=== PATIENT | male | born 1930 | race Caucasian/White ===

== ENCOUNTER 2017-01-01 08:11 | Observation (INO) | payer OTHER ==
--- NOTE | 2017-01-01 08:07 | EDPHY ---
H & P HPI/ROS: CHIEF COMPLAINT: Near syncope HISTORY OF PRESENT ILLNESS: This patient is a healthy 86 year old male arriving via EMS following a near syncopal episode earlier today while working out at the [facility]. He had done about 30 minutes on the stationary bike and was making his way around the weight circuit, when he began to feel lightheaded as if he were going to faint. He sat down to wait for the feeling to resolve, but it did not go away and staff called EMS. Per EMS report, he was slightly hypotensive initially at 98/38, but his blood pressure increased in transport and vitals remained stable with a heart rate in 50s, BGL 150. He is athletic and generally bradycardic per his report. He has history of syncopal episodes since childhood associated with heat and dehydration, the most recent being five years ago at the [facility] event. This morning, he has not eaten and states he has likely not had enough water to drink. His symptoms have now completely resolved, and he states he feels well enough to go home. He denies chest pain, shortness of breath, and headache. He denies recent illness, cough, cold, vomiting, diarrhea, bood in his stool, or other associated symptoms. He takes a statin and a daily aspirin. He has history of BPH and take Flomax ( he has been taking this for several months). REVIEW OF SYSTEMS: A ten point review of systems was performed and is negative with the exception of the items mentioned in the HPI. Past medical history: BPH Past surgical history: Noncontributory. Social history: . PCP Dr. Bey---Evangelista. Lives at home with his . Former smoker, quit 1975. Drinks in moderation. No illicit drug use. General Appearance: Alert. Vital signs reviewed. HR 50s. Eyes: Pupils equal and round, no conjunctival injection, no discharge. Anicteric. ENT, Mouth: Mucous membranes are moist, no oropharyngeal erythema or edema. Neck: No lymphadenopathy, supple. Respiratory: Lungs are clear to auscultation; no wheezes, rales, or rhonchi. Cardiovascular: Bradycardic. Regular rhythm; no murmur, rub, or gallop. Gastrointestinal: Abdomen is soft and nontender, no masses or organomegaly, bowel sounds normal. Skin: Warm and dry, no rashes on exposed skin, normal color. Back: Nontender to palpation over the thoracolumbar spine. No CVAT. Extremities: No lower extremity edema, no calf tenderness or swelling. Neurological: Alert and oriented. Moving all four extremities easily and equally. Cranial nerves II through XII are examined and are intact (visual acuity not tested). Strength is 5 over 5 bilaterally with testing of all major motor groups. Sensation is intact to light touch over all 4 extremities. Deep tendon reflexes are 2+ in the biceps and knees bilaterally. Psychiatric: Normal affect. Constitutional: Initial Vital Signs Temperature (C) 36.8 C 01/01/17 08:30 Heart Rate 54 L 01/01/17 08:30 Respiratory Rate 16 01/01/17 08:30 Blood Pressure 147/63 H 01/01/17 08:30 O2 Sat (%) 99 01/01/17 08:30 O2 Delivery Mode Room Air Allergies/Adverse Reactions: No Known Allergies Allergy (Unverified 01/01/17 12:23) Home Medications: Medication Instructions Recorded Aspirin [Aspirin 81mg (*)] 81 mg PO HS 01/01/17 Cholecalciferol Vit D3 [Vitamin D3 1,000 units PO HS 01/01/17 (*)] Simvastatin [Zocor] 40 mg PO HS 01/01/17 Medical Decision Making - Diagnostics EKG Interpretation: EKG interpreted by me in [facility]. Sinus at 52. ED Course/Re-evaluation: 9:21 Reassessed patient. Offered admission for continued observation in setting of presyncope and bradycardia. Orthostatic vital signs show supine BP of 136/60 with standing BP of 112/49. HR remains in 50s throughout. I suspect that he is always bradycardic, as he states. He is active and exercises regularly. His presyncope does not appear related to myocardial ischemia (first troponin negative). I have low suspicion for PE (no risk factors, Wells score zero). No evidence of recent or concurrent infection. Electrolytes WNL. Dehydration a strong possibility, as is his medication, Flomax. Also cardiac arrhythmia/sick sinus. I spoke with Evangelista, admission at [facility] agreed upon. 11:15 Spoke with hospitalist service. - Data Points Laboratory Results: Laboratory Results 01/01/17 08:13 01/01/17 08:13 Medications Given: Discontinued Medications Aspirin (Aspirin) 81 mg PO [facility] Stop: 06/30/17 20:59 Last Admin: 01/01/17 19:54 Dose: 81 mg Atorvastatin Calcium (Lipitor) 20 mg PO HS [facility] Stop: 06/30/17 20:59 Last Admin: 01/01/17 19:54 Dose: 20 mg Cholecalciferol (Vitamin D) 1,000 units PO HS [facility] Stop: 06/30/17 20:59 Last Admin: 01/01/17 19:53 Dose: 1,000 units Enoxaparin Sodium (Lovenox) 40 mg SC DAILY [facility] Stop: 07/01/17 08:59 Last Admin: 01/02/17 08:53 Dose: 40 mg Departure - Departure Disposition: [facility] Inpatient Acute Clinical Impression: Near syncope Condition: Good Report Scribed for: Adilene Mohr Report Scribed by: Rosario Cook Date of Report: 01/01/17 Time of Report: 09:22 Physician Review and Approval Statement: 01/02/17 12:12 Portions of this note were transcribed by the medical administrative. I, Dr. Adilene Mohr, personally performed the history, physical exam, and medical decision- making; and confirmed the accuracy of the information in the transcribed note.
--- NOTE | 2017-01-01 08:25 | CPEKG ---
Heart Rate: 52 RR Interval: 1154 P-R Interval: 212 QRSD Interval: 96 QT Interval: 428 QTC Interval: 398 P Beatrice: 29 QRS Beatrice: 70 T Wave Beatrice: 83 EKG Severity - ABNORMAL ECG - EKG Impression: SINUS RHYTHM EKG Impression: LATERAL INFARCT, OLD Electronically Signed By: Adilene Mohr 01-Jan-2017 08:30:43
[2017-01-01 08:37] LABS: % IMMATURE GRANULYOCYTES 0.3 % (0.0-1.1); ABSOLUTE IMMATURE GRANULOCYTES 0.02 10^3/uL (0.00-0.10); ADD DIFF? NO; ADD MORPH? NO; ADD SCAN? NO; ATYPICAL LYMPHOCYTE FLAG 10 (0-99); FRAGMENT RBC FLAG 20 (0-99); HEMATOCRIT 41.4 % (40.0-51.0); LEFT SHIFT FLG 0 (0-99); LIPEMIA HEMOLYSIS FLAG 90 (0-99); MEAN CELL HEMOGLOBIN 31.5 pg (27.9-34.1); MEAN CELL HEMOGLOBIN CONCENTR. 33.8 g/dL (32.4-36.7); MEAN CELL VOLUME 93.2 fL (81.5-99.8); MEAN PLATELET VOLUME 9.9 fL (8.7-11.7); PLATELET CLUMPS FLAG 0 (0-99); PLATELET COUNT 164 10^3/uL (150-400); RED BLOOD CELL COUNT 4.44 10^6/uL (4.40-6.38); RED CELL DISTRIBUTION WIDTH 12.1 % (11.5-15.2)
[2017-01-01 08:40] LABS: ANION GAP 14 mEq/L (8-16); CALCIUM 9.6 mg/dL (8.5-10.4); CARBON DIOXIDE 22 mEq/l (22-31); CHLORIDE 103 mEq/L (97-110); CREATININE 1.3 mg/dL (0.7-1.3); GLOMERULAR FILTRATION RATE 52; GLUCOSE 125 mg/dL (70-100); POTASSIUM 4.6 mEq/L (3.5-5.2); SODIUM 139 mEq/L (134-144)
[2017-01-01 08:52] LABS: TROPONIN I < 0.012 ng/mL (0-0.034)
[2017-01-01] MEDS ORDERED: ONDANSETRON 4 MG/2 ML VIAL IVP PRN (12:30)
[2017-01-01] MEDS ORDERED: ONDANSETRON DISINTEGRATING 4 MG TAB PO PRN (12:30)
[2017-01-01] MEDS ORDERED: ACETAMINOPHEN 325 MG TAB PO PRN (12:30)
--- NOTE | 2017-01-01 14:06 | GHP ---
[f rep st] HISTORY AND PHYSICAL DATE OF ADMISSION: 01/01/2017 CHIEF COMPLAINT: Presyncope. PRIMARY CARE PHYSICIAN: Dr. Bey at [place] HISTORY OF PRESENT ILLNESS: A pleasant 86-year-old male with a history of BPH, was brought in by rosemarie engel for near-syncopal episode at the gym today. He went to [facility] before 7 and was doing his norm al routine of biking and circuit training. He biked 30 minutes and then proceeded to circuit traini . He completed a series of leg presses and upon standing, felt dizzy. He then went to the [employer] and put his legs up, thinking that would help his symptoms, but this did not improve. Thus he laid flat on a bench and one of his friends called for help and was thus brought to the emergency room. He denies nausea, chest pain. He has normal shortness of breath with exercise. No PND or lower ext remity edema. He exercises 3 times a week without issue. He has had a history of syncopal episodes since childhood associated with heat and dehydration. Most recent episode was [address] [facility]. He had not eaten breakfast this morning before his work out, which is not unusual for him. Last steven l was 5 p.m. last night. He was recently started on Flomax 2 months ago but he has not been taking it for the past 2 weeks. He did take a dose last night. Has been eating and drinking okay. No nisha sea, vomiting, diarrhea. No dysuria. The patient has been evaluated previously with an exercise stress test and Holter monitor, per his r eport. PAST SURGICAL HISTORY: Bilateral shoulder surgeries. FAMILY HISTORY: Mother at age 58 of breast cancer. Father at 80 of heart failure. SOCIAL HISTORY: Lives in [place] with his of 65 years. Has 2 kids. Quit cigarettes in 1975 . Drinks a cocktail a night. No illicits. MEDICATIONS: See home medication. ALLERGIES: None. PHYSICAL EXAM: VITAL SIGNS: Temperature 36.9, blood pressure 147/63. He was orthostatic in the em ergency room from 136/60 to 112/49, but heart rate remained in the 50s. GENERAL: Patient is lying in bed, in no acute distress. Very pleasant, smiling. HEENT: PERRLA. EOMI. Oropharynx clear. M oist mucous membranes. CV: Surendra, regular. No murmurs, gallops, or rubs. LUNGS: Clear. No crac kles or wheezes. EXTREMITIES: Trace ankle edema. ABDOMEN: Soft, nontender, nondistended. Positi ve bowel sounds. : No suprapubic or CVA tenderness. MUSCULOSKELETAL: 5/5 upper and lower extre mity strength. NEURO: 2 through 12 intact. PSYCHIATRIC: Alert and oriented x3. Very pleasant. LABORATORY DATA: WBC 7, hemoglobin 14, hematocrit 41, platelets 164. D-dimer 0.34. Sodium 139, po tassium 4.6, chloride 103, carbon dioxide 22, BUN 20, creatinine 1.3 (unknown baseline), glucose 125 . Troponin less than 0.012. EKG is personally reviewed by me. Normal sinus rhythm, bradycardic, Q waves V5 through V6, no old t o compare. ASSESSMENT AND PLAN: 1. Presyncope: Differential includes dehydration, versus medication, versus cardiac. Initial EKG and troponin negative for ischemia. Will monitor on telemetry and repeat both of these. D-dimer is negative for pulmonary embolism. Denies any infectious symptoms but will check a UA. Patient conc erned given the duration and the intensity of this episode compared to prior. Will check an echocar diogram to rule out valvular abnormalities. 2. Bradycardia: He is not on any AV josie blocking agents. He reports normal heart rate in the 50 s. He exercises regularly without issues. Continue to monitor. 3. Benign prostatic hypertrophy: Previously started on Flomax 2 months ago. I am going to hold th is given syncope as I suspect this is the underlying cause of his episode today. 4. Diet: Regular. 5. DVT prophylaxis: Lovenox. 6. Disposition: The patient warrants observation admission given acute presyncopal episode warrant ing telemetry and echocardiogram. Can likely discharge in the morning if clinically stable. /[id number]/MODL
--- NOTE | 2017-01-01 15:32 | ECHO ---
[id number] + + [address] : : [place] [address] : : [phone] + + Adult Echocardiographic Report + ------+ :Name: OLGA LIDIA MARKS DStudy Date: 01/01/2017 01:49 PM BP: 154/66 mmHg : : Hospital Admission Number: [id number] Locatio n: 213: :: 1930 Gender: Male Height: 70 in : :Age: 86 yrs Race: WH Weight: 160 lb : :Reason For Study: eval for valvular abnormalities : : BSA: 1.9 meters 2 : :History: near syncope : + ------+ MMode/2D Measurements \T\ Calculations IVSd: 0.80 cm RVDd: 3.9 cm FS: 38.5 % Ao root diam: LVPWd: 0.79 cm LVIDd: 3.7 cm EDV(Teich): 59.6 ml2.9 cm LVIDs: 2.3 cm ESV(Teich): 18.1 ml EF(Teich): 69.6 % LVOT diam: 1.9 cmLVLd ap4: 9.2 cm SV(MOD-sp4): LVOT area: EDV(MOD-sp4): 97.0 ml 2.8 cm2 135.0 ml LVLs ap4: 7.6 cm ESV(MOD-sp4): 38.0 ml EF(MOD-sp4): 71.9 % Normal Measurement Values: + + :LVIDd (3.5-5.7cm) IVSd (0.6-1.1cm) LVPWd (0.6-1.1cm) Aortic Root (2.0-3.7cm)Left Atrium (1.5-4.0cm): :LV Vol(d) (76-115ml) LV Vol(s) (29-48ml) Ejec Fraction (50-65%)PV Joshua (0.6- 1.2m/s) TV Joshua (0.4-1.0m/s) : :MV E Joshua (0.8-1.0m/s)MV A Joshua (0.3-1.0m/s)LVOT Joshua (0.7-1.2m/s) Asc Ao Joshua ( 0.9-1.8m/s) : + + Doppler Measurements \T\ Calculations MV E max joshua: Ao V2 max: LV V1 max: PA V2 max: 67.6 cm/sec 150.0 cm/sec 137.0 cm/sec 103.0 cm/sec MV A max joshua: Ao max PG: LV V1 max PG: PA max P.9 cm/sec 9.0 mmHg 7.5 mmHg 4.2 mmHg MV E/A: 0.79 BRITTANY(V,D): 2.6 cm2 MV dec time: 0.32 sec Left Ventricle The left ventricle is normal in size and function. There is normal left ventricular wall thickness. Ejection Fraction = 65%. No regional wall motion abnormalities noted. Right Ventricle The right ventricle is normal in size and function. Atria The left atrial size is normal. Right atrial size is normal. Mitral Valve The mitral valve is normal in structure and function. There is no mitral valve stenosis. There is trace mitral regurgitation. Tricuspid Valve The tricuspid valve is normal in structure and function. There is no tricuspid stenosis. No tricuspid regurgitation. Aortic Valve The aortic valve is trileaflet. Mild Aortic Valve Calcification. There is no aortic stenosis. Mild aortic regurgitation. Pulmonic Valve The pulmonic valve is not well visualized. Great Vessels The aortic root is normal size. Pericardium/Pleural There is no pericardial effusion. Conclusion A two-dimensional transthoracic echocardiogram with M-mode and Doppler was performed. The left ventricle is normal in size and function. Ejection Fraction = 65%. There is trace mitral regurgitation. Mild aortic regurgitation. Final Reading Physician: Inez Garcia signed on 01/01/2017 03:31 PM Ordering Physician: Nayely Frias Performed By: Lora Kingston
[2017-01-01] MEDS ORDERED: NON-FORMULARY NEW DRUG (Simvastatin [Zocor] 40 MG) PO SCH (21:00)
[2017-01-01] MEDS ORDERED: CHOLECALCIFEROL VIT D3 1,000 UNITS TAB PO SCH (21:00)
[2017-01-01] MEDS ORDERED: ATORVASTATIN CALCIUM 20 MG TAB PO SCH (21:00)
[2017-01-01] MEDS ORDERED: ASPIRIN 81 MG CHEWABLE TAB PO SCH (21:00)
[2017-01-02 05:35] VITALS: PULSE 55; RESP 18
[2017-01-02] MEDS ORDERED: ENOXAPARIN 40 MG/0.4 ML SYR SC SCH (09:00)
[2017-01-02 09:03] VITALS: BP 125/58; TEMP 98.3; O2SAT 97
--- NOTE | 2017-01-02 17:13 | GDS ---
[f rep st] DISCHARGE SUMMARY DISCHARGE DIAGNOSES: Include: 1. Presyncope. 2. Dehydration. 3. Benign prostatic hypertrophy. HISTORY OF PRESENT ILLNESS: 86-year-old male with a history of BPH, recently started on Flomax, who presents with presyncopal symptoms. For details of patient's initial presentation, please see the history and physical dated 01/01/2017. CONSULTATIVE SERVICES: None. PROCEDURES: Transthoracic echocardiogram shows normal LV size and function. Normal valve anatomy. HOSPITAL COURSE: By issue: Presyncope. Patient was brought in, hydrated and monitored on telemetry, where he remained in sinus rhythm with adequate heart rates. Suspect his symptoms were multifactor ial underlying dehydration with concomitant use of Flomax. We have recommended the patient stop the Flomax for now, follow with his outpatient provider and make sure he keeps himself hydrated particu larly during his workouts. Patient is entirely symptom free and anxious to return home on the day of disposition. MEDICATIONS AT THE TIME OF DISCHARGE.: Please reference med rec printed on 01/02/2017. FOLLOWUP APPOINTMENTS: Include with his primary care provider, with Evangel[facility], in the next 1-2 weeks f or vital sign check and discussion related to treatment of his BPH. PENDING STUDIES AT TIME OF DICTATION: None. TIME SPENT: I spent greater than 30 minutes in the planning and coordination of this discharge. /[id number]/MODL
== END 2017-01-02 11:08 | disposition home or self-care (01) ==
LOC: EDUNIT# → F2W 12:15
PROVIDERS: ADMIT Internal Medicine; ATTEND Hospitalist
DX: R55 Syncope and collapse (principal); R00.1 Bradycardia, unspecified; E86.0 Dehydration; T44.6X5A Adverse effect of alpha-adrenoreceptor antagonists, initial encounter; N40.0 Benign prostatic hyperplasia without lower urinary tract symptoms
CPT/HCPCS: 93005; 93306; 99285; G0378; J1650